=== PATIENT | female | born 1955 | race Caucasian/White ===

== ENCOUNTER → 2019-09-08 10:05 | Outpatient (CLI) | payer OTHER, SELFPAY ==
[2019-09-08 12:44] LABS: Absolute Lymphocyte Count 1.65 X10^3/uL (0.83-4.51); Absolute Neutrophil Count 1.5 X10^3/uL (2.0-7.7); Basophil# 0.04 X10^3/uL; Basophil% 1.1 % (0-1); Eosinophils% 2.7 % (0-5); Hematocrit 44.5 % (37-47); Hemoglobin 14.8 g/dL (12.0-15.0); Lymphocyte # 1.65 X10^3/ul (4.0); Mean Corp Hgb Conc 33.3 g/dL (32-36); Mean Corpuscular Volume 93.1 fL (81-99); Mean Platelet Vol. 10.2 fl (6.2-12.0); Monocyte# 0.36 X10^3/uL; Monocyte% 9.8 % (0-10); NRBC Flagged by Analyzer 0 % (0-5); Neutrophil # 1.52 X10^3/uL (2.7-7.7); Neutrophil % 41.4 % (47-70); Platelet Count 263 K/mm3 (150-450); RBC Distribution Width CV 11.7 % (11.6-14.6); RBC Distribution Width SD 40.6 fl (35.1-43.9); Red Blood Count 4.78 M/mm3 (4.2-5.4); White Blood Count 3.7 K/mm3 (4.4-11.0)
[2019-09-08 12:54] LABS: ALB/GLOB Ratio 1.1 RATIO (0.9-2.4); AST(SGOT) 41 U/L (15-37); Alanine Aminotransfer ALT/SGPT 47 U/L (13-56); Alkaline Phosphatase 85 U/L (45-117); Anion Gap 8 (5-15); BUN 11 mg/dL (7-18); BUN/Creat Ratio 13.9 RATIO (10-20); Calcium,Total 9.1 mg/dL (8.5-10.1); Chloride 100 mmol/L (98-107); Cholesterol 277 mg/dL (200); Creatinine, Serum 0.79 mg/dL (0.55-1.02); EST Glomerular Filtration Rate 78 mL/min (>60); Est Glom Filt Rate - Afr Amer 94 mL/min (>60); Globulin 3.8 g/dL (2.2-4.2); Glucose 102 mg/dL (74-106); High Density Lipoprotein 111 mg/dL; Potassium 3.4 mmol/L (3.5-5.1); Protein, Total 7.8 g/dL (6.4-8.2); Sodium Level 139 mmol/L (136-145); Triglycerides 82 mg/dL; Very Low Density Lipoprotein 16 mg/dL (5-40)
== END ==
LOC: LAB.FUTURE 03-10 00:15 → BFHLAB 09-08 13:57
PROVIDERS: Family Provider Family Medicine; PCP Family Medicine; Visit Provider Family Medicine
DX: Z13.220 Encounter for screening for lipoid disorders (principal); Z13.1 Encounter for screening for diabetes mellitus; Z13.0 Encounter for screening for diseases of the blood and blood-forming organs and certain disorders involving the immune mechanism
CPT/HCPCS: 36415; 80053; 80061; 85025

== ENCOUNTER → 2020-09-15 10:27 | Outpatient (CLI) | payer OTHER, SELFPAY ==
[2020-09-15 12:26] LABS: Absolute Lymphocyte Count 1.18 X10^3/uL (0.83-4.51); Absolute Neutrophil Count 3.6 X10^3/uL (2.0-7.7); Basophil# 0.05 X10^3/uL; Basophil% 0.9 % (0-1); Eosinophil# 0.11 X10^3/uL; Hemoglobin 13.8 g/dL (12.0-15.0); Lymphocyte # 1.18 X10^3/ul (4.0); Lymphocyte % 21.9 % (19-41); Mean Corp Hgb Conc 32.9 g/dL (32-36); Mean Corpuscular Hgb 31.4 pg (27.0-32.0); Mean Corpuscular Volume 95.5 fL (81-99); Mean Platelet Vol. 10.3 fl (6.2-12.0); Monocyte# 0.45 X10^3/uL; Monocyte% 8.4 % (0-10); NRBC Flagged by Analyzer 0 % (0-5); Neutrophil # 3.56 X10^3/uL (2.7-7.7); Neutrophil % 66.2 % (47-70); Platelet Count 266 K/mm3 (150-450); RBC Distribution Width CV 12.5 % (11.6-14.6); RBC Distribution Width SD 44.1 fl (35.1-43.9); White Blood Count 5.4 K/mm3 (4.4-11.0)
[2020-09-15 13:29] LABS: AST(SGOT) 72 U/L (15-37); Alanine Aminotransfer ALT/SGPT 92 U/L (13-56); Albumin, Serum 4.2 g/dL (3.2-5.0); Alkaline Phosphatase 79 U/L (45-117); Anion Gap 12 (5-15); BUN 17 mg/dL (7-18); BUN/Creat Ratio 24.6 RATIO (10-20); Calcium,Total 9.5 mg/dL (8.5-10.1); Chloride 98 mmol/L (98-107); Cholesterol 300 mg/dL (200); Creatinine, Serum 0.69 mg/dL (0.55-1.02); EST Glomerular Filtration Rate 91 mL/min (>60); Est Glom Filt Rate - Afr Amer 110 mL/min (>60); Glucose 95 mg/dL (74-106); High Density Lipoprotein 156 mg/dL; Potassium 3.2 mmol/L (3.5-5.1); Protein, Total 8.2 g/dL (6.4-8.2); Sodium Level 139 mmol/L (136-145); Triglycerides 64 mg/dL; Very Low Density Lipoprotein 13 mg/dL (5-40)
== END ==
PROVIDERS: PCP Family Medicine; Visit Provider Family Medicine
DX: Z13.220 Encounter for screening for lipoid disorders (principal); Z13.1 Encounter for screening for diabetes mellitus; Z13.0 Encounter for screening for diseases of the blood and blood-forming organs and certain disorders involving the immune mechanism
CPT/HCPCS: 36415; 80053; 80061; 85025

== ENCOUNTER → 2021-06-28 10:12 | Outpatient (CLI) | payer OTHER, SELFPAY ==
--- NOTE | 2021-06-28 10:14 | RAD_ITS ---
STUDY: X-RAY - LEFT KNEE REASON FOR EXAM: Female, 66 years old. Pain. TECHNIQUE: 4 view(s) of the knee. COMPARISON: None. FINDINGS: No acute fracture, dislocation or osseous destruction. Mild medial compartment joint space time. Lateral compartment preserved. Mild patellofemoral joint space narrowing. Small volume joint effusion. RAD/Knee 4 or More Views IMPRESSION: Left knee intact with mild osteoarthritis Small volume joint effusion Electronically Signed: Carrington Hernandez DO at 10:38 EDT Tel , Service support ,
== END ==
PROVIDERS: PCP Family Medicine; Referring Provider Family Medicine; Visit Provider Family Medicine
DX: M25.562 Pain in left knee (principal)
CPT/HCPCS: 73564

== ENCOUNTER → 2022-12-07 | Outpatient (CLI) | payer MEDICARE, SELFPAY ==
[2022-12-07 15:39] LABS: Absolute Lymphocyte Count 1.38 X10^3/uL (0.83-4.51); Absolute Neutrophil Count 3.2 X10^3/uL (2.0-7.7); Basophil# 0.04 X10^3/uL; Basophil% 0.8 % (0-1); Eosinophil# 0.11 X10^3/uL; Eosinophils% 2.1 % (0-5); Hematocrit 42.9 % (37-47); Hemoglobin 14.3 g/dL (12.0-15.0); Lymphocyte # 1.38 X10^3/ul (0.83-4.51); Lymphocyte % 26.6 % (19-41); Mean Corp Hgb Conc 33.3 g/dL (32-36); Mean Corpuscular Hgb 31.3 pg (27.0-32.0); Mean Corpuscular Volume 93.9 fL (81-99); Mean Platelet Vol. 10.8 fl (6.2-12.0); Monocyte# 0.41 X10^3/uL; Monocyte% 7.9 % (0-10); NRBC Flagged by Analyzer 0 % (0-5); Neutrophil # 3.23 X10^3/uL (2.7-7.7); Neutrophil % 62.4 % (47-70); Platelet Count 264 K/mm3 (150-450); RBC Distribution Width CV 11.8 % (11.6-14.6); RBC Distribution Width SD 40.3 fl (35.1-43.9); Red Blood Count 4.57 M/mm3 (4.2-5.4); White Blood Count 5.2 K/mm3 (4.4-11.0)
[2022-12-07 16:51] LABS: AST(SGOT) 49 U/L (15-37); Alanine Aminotransfer ALT/SGPT 74 U/L (13-56); Albumin, Serum 3.9 g/dL (3.2-5.0); Alkaline Phosphatase 85 U/L (45-117); Anion Gap 10 (5-15); BUN 14 mg/dL (7-18); BUN/Creat Ratio 20.1 RATIO (10-20); Calcium,Total 9.4 mg/dL (8.5-10.1); Chloride 98 mmol/L (98-107); Cholesterol 315 mg/dL (200); EST Glomerular Filtration Rate 90 mL/min (>60); Est Glom Filt Rate - Afr Amer 108 mL/min (>60); Glucose 99 mg/dL (74-106); High Density Lipoprotein 118 mg/dL; Iron 181 ug/dL (50-170); Potassium 3.3 mmol/L (3.5-5.1); Protein, Total 7.9 g/dL (6.4-8.2); Sodium Level 138 mmol/L (136-145); Thyroid Stim Hormone (TSH) 0.47 uIU/mL (0.358-3.74); Triglycerides 78 mg/dL; Very Low Density Lipoprotein 16 mg/dL (5-40)
[2022-12-07 18:01] LABS: Vitamin D,25 Hydroxy 36.6 ng/mL
== END | disposition home or self-care (01) ==
PROVIDERS: PCP Family Medicine; Visit Provider Family Medicine
DX: I10 Essential (primary) hypertension (principal); E87.6 Hypokalemia; E55.9 Vitamin D deficiency, unspecified; R53.83 Other fatigue; Z51.81 Encounter for therapeutic drug level monitoring
CPT/HCPCS: 36415; 80053; 80061; 82306; 83540; 84443; 85025

== ENCOUNTER → 2023-06-22 | Outpatient (CLI) | payer MEDICARE, SELFPAY ==
--- NOTE | 2023-06-22 12:57 | RAD_ITS ---
HISTORY: KNEE PAIN. TECHNIQUE: XR Knee Complete 4 Views or More. COMPARISON: None. FINDINGS: BONES : No acute fracture identified. Mineralization unremarkable. Small degenerative osteophytes noted. JOINTS: No dislocation. Joint spaces maintained. Mild joint effusion. RAD/Knee 4 or More Views IMPRESSION: No acute fracture or dislocation identified . Mild degenerative change and mild joint effusion of the right knee. Electronically Signed: Nettie Wilcox MD at 9:09 EDT ,
== END | disposition home or self-care (01) ==
LOC: MTRAD 12:55
PROVIDERS: PCP Family Medicine; Referring Provider Nurse Practitioner Family; Visit Provider Nurse Practitioner Family
DX: M25.561 Pain in right knee (principal)
CPT/HCPCS: 73564

== ENCOUNTER → 2023-12-19 | Outpatient (CLI) | payer MEDICARE, SELFPAY ==
[2023-12-19 15:32] LABS: Absolute Lymphocyte Count 1.74 X10^3/uL (0.83-4.51); Absolute Neutrophil Count 2.2 X10^3/uL (2.0-7.7); Basophil# 0.05 X10^3/uL; Basophil% 1.1 % (0-1); Eosinophil# 0.11 X10^3/uL; Eosinophils% 2.4 % (0-5); Hematocrit 44.4 % (37-47); Hemoglobin 14.4 g/dL (12.0-15.0); Lymphocyte # 1.74 X10^3/ul (0.83-4.51); Lymphocyte % 37.4 % (19-41); Mean Corp Hgb Conc 32.4 g/dL (32-36); Mean Corpuscular Volume 95.5 fL (81-99); Mean Platelet Vol. 10.9 fl (6.2-12.0); Monocyte# 0.52 X10^3/uL; Monocyte% 11.2 % (0-10); NRBC Flagged by Analyzer 0 % (0-5); Neutrophil # 2.22 X10^3/uL (2.7-7.7); Neutrophil % 47.7 % (47-70); Platelet Count 237 K/mm3 (150-450); RBC Distribution Width CV 12.2 % (11.6-14.6); RBC Distribution Width SD 42.5 fl (35.1-43.9); Red Blood Count 4.65 M/mm3 (4.2-5.4); White Blood Count 4.7 K/mm3 (4.4-11.0)
[2023-12-19 15:57] LABS: ALB/GLOB Ratio 1.1 RATIO (0.9-2.4); AST(SGOT) 65 U/L (15-37); Alanine Aminotransfer ALT/SGPT 98 U/L (13-56); Alkaline Phosphatase 88 U/L (45-117); Anion Gap 5 (5-15); BUN 14 mg/dL (7-18); BUN/Creat Ratio 21.7 RATIO (10-20); Calcium,Total 9.6 mg/dL (8.5-10.1); Chloride 101 mmol/L (98-107); Cholesterol 308 mg/dL (200); Creatinine, Serum 0.64 mg/dL (0.55-1.02); EST Glomerular Filtration Rate 98 mL/min (>60); Est Glom Filt Rate - Afr Amer 118 mL/min (>60); Globulin 3.7 g/dL (2.2-4.2); Glucose 100 mg/dL (74-106); High Density Lipoprotein 103 mg/dL; Iron 244 ug/dL (50-170); Potassium 3.3 mmol/L (3.5-5.1); Protein, Total 7.7 g/dL (6.4-8.2); Sodium Level 136 mmol/L (136-145); Thyroid Stim Hormone (TSH) 1.16 uIU/mL (0.358-3.74); Triglycerides 103 mg/dL; Very Low Density Lipoprotein 21 mg/dL (5-40)
[2023-12-19 16:02] LABS: Vitamin D,25 Hydroxy 50.8 ng/mL
== END | disposition home or self-care (01) ==
LOC: BFHLAB 11:23
PROVIDERS: PCP Family Medicine; Visit Provider Family Medicine
DX: I10 Essential (primary) hypertension (principal); E55.9 Vitamin D deficiency, unspecified; E87.6 Hypokalemia; R53.83 Other fatigue; Z51.81 Encounter for therapeutic drug level monitoring
CPT/HCPCS: 36415; 80053; 80061; 82306; 83540; 84443; 85025

== ENCOUNTER → 2024-04-11 | Outpatient (CLI) | payer MEDICARE, SELFPAY ==
--- NOTE | 2024-04-11 | IMM_PTH ---
PATIENT: ARIAS PANTOJA LOC: [facility] U#:[id number] AGE/SX: 69/F ROOM: RE04/11/[address]: Dr. Anjel Neil MD : 1955 BED: DIS: 04/11/2024 SPEC #: [id number] RECD: 04/16/24 11:30 STATUS: JAMAL REQ #: [id number] MARTITA: 04/11/24 00:[address]: Anjel Neil DEPT: IMMUNOHISTOCHEMISTRY RECD BY: Raymond Hardin ENTERED: 04/16/24 11:30 SP TYPE: IMMUNO OTHR DR: Dr. Lilibeth Rodgers, DO Tissues: Palate, NOS Procedures: p16 (initial) KI-67 (add) PHYSICIAN & INSTITUTION [place] [address] SPECIMEN INFORMATION: Tissue Source: Soft palate lesion Clinical Info: Pigmented soft palate lesion Specimen Number: [id number] CPT code: 77096,50137 METHODOLOGY: Deparaffinized sections of prefer/formalin-fixed tissue or PAP/DQ stained slides are incubated with monoclonal/polyclonal antibodies/oligonucleotide probes. Localization is made via biotin free immunoperoxidase method. Appropriate controls are performed and reacted as expected. Results on target cell population are indicated in the following table: RESULTS: ANTIBODY / CLONE RESULT P16 (E6H4) negative Ki-67 (30-9) negative These tests were developed and their performance characteristics determined by [facility]. They may not have been cleared or approved by the U.S. Food and Drug Administration. The FDA has determined that such clearance or approval is not necessary. The above immunohistochemical/dualISH markers are ordered and reviewed by the Pathologist. INTERPRETATION: Soft palate lesion, excision: No evidence of HPV change. ABDULKADIR/ 04/17/2024
--- NOTE | 2024-04-11 16:05 | LES_PTH ---
PATIENT: ARIAS PANTOJA LOC: [facility] U#:[id number] AGE/SX: 69/F ROOM: RE04/11/[address]: Dr. Anjel Neil MD : 1955 BED: DIS: 04/11/2024 SPEC #: [id number] RECD: 04/15/24 09:43 STATUS: JAMAL RESiva #: [id number] MARTITA: 04/11/24 16:[address]: Anjel Neil DEPT: SURGICAL PATHOLOGY RECD BY: Ernestina Stinson ENTERED: 04/15/24 09:43 SP TYPE: Lesion OTHR DR: Dr. Lilibeth Rodgers, DO Tissues: Palate, NOS Procedures: Surgery Specimen Level IV HEADER OPERATION: Permanent pathology PRE-OP DIAGNOSIS: Pigmented soft palate lesion TISSUE SUBMITTED: Soft palate lesion MICROSCOPIC DIAGNOSIS Soft palate lesion, biopsy: Benign mucosal polyp. See comment. ABDULKADIR/ 04/16/2024 COMMENT Immunohistochemistry ([id number]) supports the above diagnosis. MICROSCOPIC DESCRIPTION Slides are reviewed. GROSS DESCRIPTION Received in fixative is one container labeled with the patient's name and designated Soft palate lesion biopsy. The specimen consists of one irregular fragment of light swartz soft tissue that measures 0.2 x 0.2 x 0.1 cm. The specimen is totally submitted in one cassette. AM/mr 04/15/2024 TC:5 CPT:83766
== END | disposition home or self-care (01) ==
LOC: LABSPEC 16:40
PROVIDERS: PCP Family Medicine; Referring Provider Otolaryngology; Visit Provider Otolaryngology
DX: K13.70 Unspecified lesions of oral mucosa (principal)
CPT/HCPCS: 88305; 88341; 88342

== ENCOUNTER → 2024-11-24 | Outpatient (CLI) | payer MEDICARE, SELFPAY ==
--- NOTE | 2024-11-24 13:05 | RAD_ITS ---
HISTORY: right middle finger cellulitis. TECHNIQUE: XR Fingers Min 2 Views. COMPARISON: None. FINDINGS: BONES : No acute fracture identified. Mild erosion of the base of the distal phalanx. JOINTS: No dislocation. Mild degenerative change with interphalangeal joint space narrowing and small osteophytes. SOFT TISSUES: Severe soft tissue swelling surrounding the distal interphalangeal joint. RAD/Finger(s) Min 2 Views IMPRESSION: Severe soft tissue swelling of the right third distal interphalangeal joint with suspicion for osteomyelitis at the base of the distal phalanx. Early septic arthritis not excluded. Electronically Signed: Nettie Wilcox MD at 13:58 EST ,
== END | disposition home or self-care (01) ==
LOC: MTRAD 13:05
PROVIDERS: PCP Family Medicine; Referring Provider Physician Assistant; Visit Provider Physician Assistant
DX: L03.011 Cellulitis of right finger (principal)
CPT/HCPCS: 73140

== ENCOUNTER 2024-11-25 11:47 | Inpatient (IN) | payer MEDICARE, SELFPAY ==
[2024-11-25] VITALS (9 sets, daily range): BP systolic 139–158; BP diastolic 73–94; PULSE 79–100; RESP 16–23; TEMP 36.3–36.9; O2SAT 96–100; BMI 23.3; BMI 24.5
--- NOTE | 2024-11-25 12:38 | EX.ED.UPPERE ---
HPI History of Present Illness Chief Complaint: Upper Extremity Injury Narrative Narrative: Chief complaint and HPI: Suspected osteomyelitis of the right third distal interphalangeal joint. 69-year-old female presents for evaluation of suspected osteomyelitis of the right third distal interphalangeal joint. Patient was seen and evaluated by Dr. Spain today and sent in for further workup and admission. Plan is for local incision and drainage by Dr. Spain later today and likely MRI. Patient states that she was recently injured by a home cactus plant in that finger. She cannot tell me when this happened. She states over the past several days she has been having increase redness and swelling in the right third finger. She states that she did pop the area a couple days ago in which she got out purulent material. She states since then she has been having increased swelling, redness, pain and purulence in the finger. She was seen by an urgent care yesterday who obtained x-ray. She had follow-up with Dr. Spain today. She denies any fever, chills, nausea, vomiting. Review of systems: See HPI Medications: As listed on the chart Allergies: As listed on the chart PFSH: Per chart Vital signs: As listed on the chart. Reviewed. Physical exam: Gen: A&O x3, NAD Head: Normocephalic, atraumatic Eyes: No sclera icterus, conjunctiva clear ENT: Moist mucous membranes CV: RRR, no murmurs Resp: Lungs CTA BL, no w/r/c Musc: There is significant swelling and erythema to the right third finger at the DIP joint. Area is tender to palpation. There appears to be a small abscess/purulent material that is contained within the swelling. No active drainage. Full range of motion of the finger. Radial/ulnar pulses plus 2 out of 4. Skin: Warm, dry Neuro: Alert, oriented, grossly intact, sensation intact Psych: Cooperative, appropriate mood and affect [facility] Medical History ETOH abuse Hypertension Cellulitis of right middle finger Home Medications ?Medication ?Instructions ?Recorded ?Last Taken ?Type doxycycline monohydrate 100 mg 100 mg PO BID #20 caps 11/24/24 11/25/24 Rx capsule hydrochlorothiazide 25 mg tablet 25 mg PO QDAY 11/24/24 11/25/24 History Allergy/AdvReac Type Severity Reaction Status Date / Time Penicillins Allergy Severe Rash Verified 11/25/24 10:06 Family History Mother CVA (cerebral vascular accident) Dementia Father Hypertension Aunt Alcohol abuse Uncle Alcohol abuse Surgical History Previous section History of thumb surgery Social History household members: spouse Smoking Status: Never smoker alcohol intake: current alcohol intake frequency: 3 or more drinks per day Alcohol type: hard liquor details: Prior 1-2 drinks/night->since 09/2024 increased to 4-6/night. substance use type: does not use what type of physical activity do you participate in: walking and bicycling do you feel safe at home: Yes EXAM Physical Exam Const Vital Signs: 11/25/24 11:48 11/25/24 11:49 Temperature 97.4 F L 97.4 F L Temperature Source Temporal Oral Pulse Rate 100 100 Respiratory Rate 20 H 18 Blood Pressure 157/92 H 157/92 H Blood Pressure Mean 113 113 Pulse Ox 98 Oxygen Delivery Method Room Air Room Air MDM MDM MDM Narrative Medical decision making narrative: 69-year-old female presents for evaluation of suspected osteomyelitis of the right third distal interphalangeal joint. On chart review, patient has x-ray of the right middle finger. Shows severe soft tissue swelling of the right third distal interphalangeal joint which is consistent with her physical exam. Suspicion for osteomyelitis at the base of the distal phalanx. Early septic arthritis not excluded. Differential diagnosis includes but is not limited to osteomyelitis, cellulitis, abscess. Patient has rash to penicillins therefore cefepime and vancomycin ordered empirically. Laboratory workup ordered including blood cultures. CBC without leukocytosis or anemia. BMP shows mild dehydration without TOÑO. Lactic acid unremarkable. CRP elevated at 25. ESR unremarkable. Patient will warrant admission for MRI as well as IV antibiotics and I&D by Dr. Spain. Patient was updated of all results and confirmed understanding the plan. Dr. Matute accepted admission. Impression: 1. Suspected osteomyelitis of the right third distal interphalangeal joint 2. Dehydration Discharge Plan Disposition Disposition: Acute Care Hospital [facility] Discharge Date/Time: 11/25/24 14:36
[2024-11-25] MEDS: Cefepime HCl 2 GM in 0.9% Normal Saline (100mL MB+) 100 ML IV ×2 (12:49→22:05)
[2024-11-25 13:09] LABS: Absolute Lymphocyte Count 0.87 X10^3/uL (0.83-4.51); Absolute Neutrophil Count 3.8 X10^3/uL (2.0-7.7); Basophil# 0.02 X10^3/uL; Basophil% 0.4 % (0-1); Eosinophil# 0.04 X10^3/uL; Eosinophils% 0.8 % (0-5); Hematocrit 40.8 % (37-47); Hemoglobin 14.2 g/dL (12.0-15.0); Lymphocyte # 0.87 X10^3/ul (0.83-4.51); Lymphocyte % 16.6 % (19-41); Mean Corp Hgb Conc 34.8 g/dL (32-36); Mean Corpuscular Hgb 31.6 pg (27.0-32.0); Mean Corpuscular Volume 90.7 fL (81-99); Mean Platelet Vol. 9.6 fl (6.2-12.0); Monocyte# 0.51 X10^3/uL; Monocyte% 9.8 % (0-10); NRBC Flagged by Analyzer 0 % (0-5); Neutrophil # 3.77 X10^3/uL (2.7-7.7); Platelet Count 282 K/mm3 (150-450); RBC Distribution Width CV 12.5 % (11.6-14.6); RBC Distribution Width SD 40.7 fl (35.1-43.9); White Blood Count 5.2 K/mm3 (4.4-11.0)
[2024-11-25 13:11] LABS: Anion Gap 8 (5-15); BUN 10 mg/dL (7-18); BUN/Creat Ratio 16.6 RATIO (10-20); Calcium,Total 9.7 mg/dL (8.5-10.1); Chloride 94 mmol/L (98-107); EST Glomerular Filtration Rate 105 mL/min (>60); Est Glom Filt Rate - Afr Amer 127 mL/min (>60); Estimated Creatinine Clearance 58.93 ml/min; Glucose 103 mg/dL (74-106); Sodium Level 132 mmol/L (136-145)
[2024-11-25 13:15] LABS: Erythrocyte Sedimentation Rate 16 mm/hr (0-30)
[2024-11-25 13:25] LABS: Lactic Acid 1.1 mmol/L (0.4-1.9)
[2024-11-25] MEDS: Vancomycin HCl 1,500 MG in 0.9% Normal Saline (500mL Bag) 500 ML 250 MG IV (13:41)
--- NOTE | 2024-11-25 13:50 | PCM.HP.STD ---
HPI - General General Date of Admission: 11/25/24 Date of Service: 11/25/24 Chief Complaint: R middle finger swelling/pain/redness. HPI Narrative The patient is an 69 y/o F w/ PMHx: EtOH abuse (normally max 2 drinks nightly recently until 09/2024 with then increase to at least 4-6 heavy liquor drinks each with at least 2 ounces of liquor) noting she has recently been attempting to decrease her amount with potentially mild tremors associated, HTN who presents to the [facility] ED on 11/25/2024 with history of 1 to 1.5-week duration of right long finger swelling and discomfort at the distal interphalangeal joint with evidence of fluid collection noting that she had initially gotten it stuck at that location while she had been watering a cactus with a cactus thorn when this initially started with a progressively worsening with urgent care evaluation the day prior placed on doxycycline at that time with radiology follow-up imaging discussion with provider who recommended follow-up with hand surgeon given concern for cortical erosion at the distal phalanx consistent with an infection with mild to moderate pain prompting evaluation on day of presentation with Dr. Markie Spain who recommended following evaluation ED evaluation for admission/abx therapy and further imaging. She notes her finger aches more than is painful and it is minimal 11/28. She notes potentially feeling low grade temperatures recently and some mild nausea following doxycycline intake x 1 otherwise no other marked symptoms. Workup in the ED included T97.4, heart rate 100, BP 157/92, respiratory rate 20, 98% room air with most recent repeat vitals T98.2 Orally, heart rate 81, BP 149/89, respiratory rate 23, 97% room air, CBC with WBC 5.2, hemoglobin 14.2, platelet 282 without marked shift, ESR 16, CRP 25, lactic acid 1.1, BMP with sodium 132, potassium 4.0, chloride 94, BUN/creatinine 10/0.60, GFR 105, blood culture x 2 pending per ED. In the ED patient ministered cefepime 2 g IV x 1 and vancomycin 1500 mg IV x 1. [facility] Medical History ETOH abuse Hypertension Cellulitis of right middle finger Home Medications ?Medication ?Instructions ?Recorded ?Last Taken ?Type doxycycline monohydrate 100 mg 100 mg PO BID #20 caps 11/24/24 11/25/24 Rx capsule hydrochlorothiazide 25 mg tablet 25 mg PO QDAY 11/24/24 11/25/24 History Allergy/AdvReac Type Severity Reaction Status Date / Time Penicillins Allergy Severe Rash Verified 11/25/24 10:06 Family History Mother CVA (cerebral vascular accident) Dementia Father Hypertension Aunt Alcohol abuse Uncle Alcohol abuse Surgical History Previous section History of thumb surgery Social History household members: spouse Smoking Status: Never smoker alcohol intake: current alcohol intake frequency: 3 or more drinks per day Alcohol type: hard liquor details: Prior 1-2 drinks/night->since 09/2024 increased to 4-6/night. substance use type: does not use what type of physical activity do you participate in: walking and bicycling do you feel safe at home: Yes ROS ROS Narrative Admission Review of Systems: CONSTITUTIONAL: No weight loss, chills, + possible low grade fever, weakness or fatigue. HEENT: Eyes: No visual loss, blurred vision, double vision or yellow sclerae. Ears, Nose, Throat: No hearing loss, sneezing, congestion, runny nose or sore throat. SKIN: No rash or itching, lesions, wounds except + R middle distal finger erythema, edema, appearance of abscess developing. CARDIOVASCULAR: No chest pain, chest pressure or chest discomfort, palpitations, edema, orthopnea, syncopal events. RESPIRATORY: No shortness of breath, cough or sputum, wheezing, hemoptysis. GASTROINTESTINAL: No anorexia, nausea, vomiting or diarrhea, abdominal pain, melena, BRBPR. GENITOURINARY: No dysuria, frequency, urgency or retention. NEUROLOGICAL: + Mild tremors. No headache, dizziness, syncope, paralysis, ataxia, numbness or tingling in the extremities, focal weakness, change in bowel or bladder control, seizure. MUSCULOSKELETAL: + muscle, back pain, joint pain or stiffness. HEMATOLOGIC: No anemia, bleeding or bruising. LYMPHATICS: No enlarged nodes. No history of splenectomy. PSYCHIATRIC: No history of depression or anxiety. ENDOCRINOLOGIC: No reports of sweating, cold or heat intolerance. No polyuria or polydipsia. ALLERGIES: + Hx rash with PCN. Vital Signs Vital Signs Vital Signs: 11/25/24 11:48 11/25/24 11:49 11/25/24 12:35 Temperature 97.4 F L 97.4 F L 97.4 F L Temperature Source Temporal Oral Pulse Rate 100 100 100 Respiratory Rate 20 H 18 18 Blood Pressure 157/92 H 157/92 H 157/92 H Blood Pressure Mean 113 113 113 Pulse Ox 98 98 Oxygen Delivery Method Room Air Room Air 11/25/24 12:49 11/25/24 13:00 Temperature 98.2 F 98.2 F Temperature Source Oral Oral Pulse Rate 79 81 Respiratory Rate 22 H 23 H Blood Pressure 158/94 H 149/89 H Blood Pressure Mean 115 109 Pulse Ox 97 97 Oxygen Delivery Method Room Air Room Air Weight Weight: 135 lb 14.4 oz Body Mass Index (BMI) 23.3 Physical Exam Narrative Physical Examination: General: Awake, alert, oriented x 3 and cooperative, seated upright in bed in no apparent distress, denies any current pain to the hand. Skin: Normal color, normal turgor, no icterus, no cyanosis except R distal middle finger primarily edema, erythema, fluid appearance in the radial and ulnar sides on the dorsal region of the DIP joint. HEENT: AT/NC, EOMI, PERRLA, MMM, no carotid bruits or JVD noted. Lungs: CTA bilaterally, moderate effort, mild decrease BL bases, no rales, ronchi or wheezing. Heart: Regular rate and rhythm; no gallop, rub audible. Abdomen: Soft, NTTP, ND, normal BS, no appreciatedHSM. Extremities: No cyanosis, clubbing, see skin. Neurological: Patient awake, alert, oriented as noted, cognitive function intact; pupils equally reactive to light and accommodation, cranial nerves grossly normal, moving all 4 extremities despite event R middle finger findings as noted, no focal deficits, strength mildly globally decreased. Psychiatric: Affect appears normal, no acute evidence of depressive or anxiety feelings. Results Lab / Micro Data 11/25/24 12:45 11/25/24 12:45 Labs: Laboratory Results - last 24 hr 11/25/24 12:45: WBC 5.2, RBC 4.50, Hgb 14.2, Hct 40.8, MCV 90.7, MCH 31.6, MCHC 34.8, RDW Std Deviation 40.7, RDW Coeff of Garett 12.5, Plt Count 282, MPV 9.6, Immature Gran % (Auto) 0.400, Neut % (Auto) 72.0 H, Lymph % (Auto) 16.6 L, Leslie % (Auto) 9.8, Eos % (Auto) 0.8, Baso % (Auto) 0.4, Absolute Neuts (auto) 3.8, Absolute Lymphs (auto) 0.87, Nucleated RBC % 0, ESR 16, Sodium 132 L, Potassium 3.0 L, Chloride 94 L, Carbon Dioxide 30.0, Anion Gap 8, BUN 10, Creatinine 0.60, Estim Creat Clear Calc 58.93, Est GFR (MDRD) Af Amer 127, Est GFR (MDRD) Non-Af 105, BUN/Creatinine Ratio 16.6, Glucose 103, Lactic Acid 1.1, Calcium 9.7, C-React Prot Ext Range 25.00 H Assessment & Plan Assessment/Plan (1) Cellulitis of right middle finger: (2) Infection of distal interphalangeal (DIP) joint of finger: PLAN: Plan The patient is an 69 y/o F w/ PMHx: EtOH abuse (normally max 2 drinks nightly recently until 09/2024 with then increase to at least 4-6 heavy liquor drinks each with at least 2 ounces of liquor) noting she has recently been attempting to decrease her amount with potentially mild tremors associated, HTN who presents to the [facility] ED on 11/25/2024 with history of 1 to 1.5-week duration of right long finger swelling and discomfort at the distal interphalangeal joint with evidence of fluid collection noting that she had initially gotten it stuck at that location while she had been watering a cactus. #1. R middle finger cellulitis, distal interphalangeal joint infection: Will admit to [facility], maintain on IV vancomycin and cefepime given allergy history and also concern for joint infection, per discussion with plastic surgery noted planned bedside possible debridement versus debridement in OR under local only, would plan to obtain Wound Cx, will obtain Wound MRSA PCR, plan repeat CBC in AM, continue affected extremity elevation above heart when seated and in bed, monitor erythema outline with VS checks, wound RN consultation, dressing changes per plastic surgery discretion, MRI of the right hand with and without contrast also requested, as needed antiemetic and pain regimen. #2. EtOH Abuse: Patient notes routine consumption of currently up to 4-6 drinks of liquor per day. Per discussion with patient she does plan to continue alcohol intake but wants to decrease this again and understands the appropriate intake level and was considered alcohol abuse. Will maintain on CIWA protocol, MVI, thiamine and folic acid. Case management consulted. Will have as needed agents for symptom control per protocol order set. #3. Hyponatremia, mild, potentially secondary to hydrochlorothiazide, alcohol abuse and potential hypovolemic component given acute infection #1: Admission sodium 132, chloride 94, will judiciously hydrate and repeat CMP in a.m. #4. Hypokalemia: Admission K+ 3.0, magnesium level requested, supplementation given, repeat level in AM. #5. Hypertension: Continue home regimen including hydrochlorothiazide with hold parameters as needed, PRN hydralazine. #6. DVT prophylaxis: Lovenox. Charges/Coding Visit Charges Inpatient E&M: 78910 Init Hosp L3
--- NOTE | 2024-11-25 14:10 | HP.PCM.SX_ITS ---
HPI - General General Date of Admission: 11/25/24 Chief Complaint: R middle finger swelling/pain/redness. HPI Narrative Maureen Suarez is a delightful 69-year-old female with past medical history of hypertension who presents today for 1-1/2 weeks duration of right long finger swelling at the distal interphalangeal joint with new formation of fluid collections. She reports that she got stuck in this location while watering a cactus (cactus thorn) 1.5 weeks ago around the same time that the swelling started. Her friend told her to go to the urgent care yesterday. She was placed on doxycycline and discharged. The radiologist called the provider and recommended follow-up with hand surgery as there was concern for cortical erosions in the distal phalanx consistent with an infection. Patient denies any severe pain but reports that she has a high pain tolerance overall. She initially thought it was gout as she had been eating a lot of meat and drinking wine over the holidays, but she has never had a diagnosed gout exacerbation in the past. Patient is right-hand dominant does not smoke. She is . 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 She reports at least 2 alcoholic beverages per day, and reported to me that it would be a problem for her to be admitted to the hospital without this being taken into account. Here in the ED for evaluation Admitting to medicine and taking to the OR [facility] Medical History (Updated 11/25/24 @ 11:58 by La Menezes) Hypertension Cellulitis of right middle finger Home Medications ?Medication ?Instructions ?Recorded ?Last Taken ?Type doxycycline monohydrate 100 mg 100 mg PO BID #20 caps 11/24/24 11/25/24 Rx capsule hydrochlorothiazide 25 mg tablet 25 mg PO QDAY 11/24/24 11/25/24 History Allergy/AdvReac Type Severity Reaction Status Date / Time Penicillins Allergy Severe Rash Verified 11/25/24 10:06 Surgical History (Updated 11/25/24 @ 11:57 by La Menezes) Previous section History of thumb surgery Social History household members: spouse Smoking Status: Never smoker alcohol intake: current alcohol intake frequency: 0-2 drinks per day substance use type: does not use what type of physical activity do you participate in: walking and bicycling do you feel safe at home: Yes Vital Signs Vital Signs Vital Signs: 11/25/24 11:48 11/25/24 11:49 11/25/24 12:35 Temperature 97.4 F L 97.4 F L 97.4 F L Temperature Source Temporal Oral Pulse Rate 100 100 100 Respiratory Rate 20 H 18 18 Blood Pressure 157/92 H 157/92 H 157/92 H Blood Pressure Mean 113 113 113 Pulse Ox 98 98 Oxygen Delivery Method Room Air Room Air 11/25/24 12:49 11/25/24 13:00 Temperature 98.2 F 98.2 F Temperature Source Oral Oral Pulse Rate 79 81 Respiratory Rate 22 H 23 H Blood Pressure 158/94 H 149/89 H Blood Pressure Mean 115 109 Pulse Ox 97 97 Oxygen Delivery Method Room Air Room Air Weight Weight: 135 lb 14.4 oz Body Mass Index (BMI) 23.3 Physical Exam Narrative Right Upper Extremity Inspection: Pockets of fluid versus tophus (but favor fluid) radial and ulnar sides of the terminal slip on the dorsum of the DIP joint of the right long finger. No signs of ascending infection. No signs of flexor tenosynovitis. Palpation: No tenderness to palpation Motor: Able to bend and extend all MP, PIP, and DIP joints. Sensory: Intact to light touch on the radial and ulnar borders. Vascular: Finger tips are warm and well perfused with <2 second capillary refill. Results Lab / Micro Data 11/25/24 12:45 11/25/24 12:45 Labs: Laboratory Results - last 24 hr 11/25/24 12:45: WBC 5.2, RBC 4.50, Hgb 14.2, Hct 40.8, MCV 90.7, MCH 31.6, MCHC 34.8, RDW Std Deviation 40.7, RDW Coeff of Garett 12.5, Plt Count 282, MPV 9.6, Immature Gran % (Auto) 0.400, Neut % (Auto) 72.0 H, Lymph % (Auto) 16.6 L, Payette % (Auto) 9.8, Eos % (Auto) 0.8, Baso % (Auto) 0.4, Absolute Neuts (auto) 3.8, Absolute Lymphs (auto) 0.87, Nucleated RBC % 0, ESR 16, Sodium 132 L, Potassium 3.0 L, Chloride 94 L, Carbon Dioxide 30.0, Anion Gap 8, BUN 10, Creatinine 0.60, Estim Creat Clear Calc 58.93, Est GFR (MDRD) Af Amer 127, Est GFR (MDRD) Non-Af 105, BUN/Creatinine Ratio 16.6, Glucose 103, Lactic Acid 1.1, Calcium 9.7, C- React Prot Ext Range 25.00 H Assessment & Plan Assessment/Plan (1) Infection of distal interphalangeal (DIP) joint of finger: (2) Cellulitis of right middle finger: PLAN: Plan I talked the patient extensively about the risks of surgery, including bleeding, infection, damage to surrounding structures, surgical site dehiscence and wound formation, need for wound care, need for repeat operations, failure to obtain the desired result, DVT/PE, and the risks of anesthesia (albeit we are performing under local). The benefits and alternatives of this surgery were also discussed. All of their questions were answered, and they agreed to proceed with surgery. Plan for I&D in the OR of the right long finger DIP joint infection.
[2024-11-25 14:50] LABS: Magnesium 1.8 mg/dL (1.6-2.6); Phosphorus 3.1 mg/dL (2.5-4.9)
--- NOTE | 2024-11-25 16:30 | TISS_PTH ---
PATIENT: ARIAS PANTOJA LOC: MS3 U#:[id number] AGE/SX: 69/F ROOM: CO305 RE11/25/[address]: Dr. Markie Spain MD : 1955 BED: 1 DIS: 11/27/2024 SPEC #: [id number] RECD: 11/25/24 18:36 STATUS: JAMAL BARRON #: [id number] MARTITA: 11/25/24 16:[address]: Markie Spain DEPT: SURGICAL PATHOLOGY RECD BY: Edel Larson ENTERED: 11/26/24 12:40 SP TYPE: Tissue Bx JON DR: DO Dr. Sarah Barrientos MD Dr. Robert Leininger, MD Tissues: TISSUE SURGICALLY REMOVED Procedures: Surgery Specimen Level IV Imprint (control) HEADER OPERATION: Joint right long finger PRE-OP DIAGNOSIS: Infection of distal interphalangeal joint of finger, cellulitis of right middle finger TISSUE SUBMITTED: Right long finger joint MICROSCOPIC DIAGNOSIS Right long finger joint, biopsy: A fragment of dense fibroconnective tissue with granulation tissue reaction. See comment. BRIDGER 11/27/2024 COMMENT One touch imprint is prepared from the tissue and shows monosodium urate crystals (gout crystals). MICROSCOPIC DESCRIPTION Slides are reviewed. GROSS DESCRIPTION Received without fixative and post fixed in formalin is one container labeled with the patient's name and designated Right long finger joint. The specimen consists of two irregular fragments of swartz indurated tissue that in aggregate measure 0.5 x 0.5 x 0.1 cm. One touch imprint is prepared for crystal examination. The specimen is totally submitted in one cassette. BRIDGER 11/26/2024 TC:5 CPT:20681
[2024-11-25] MEDS: Bupiv/Epi 0.25% 30 ML Vial (18:06)
[2024-11-25] MEDS: Lidocaine 1% /Epi 1:100 (20ml) 20 ML Vial (18:06)
[2024-11-25 20:22] LABS: CRYSTALS, BODY FLUID See PATH REV
[2024-11-25 20:23] LABS: Body Fluid QC Type(s) BF2Q; Source- Body Fluid OTHER
--- NOTE | 2024-11-25 20:45 | PCM.RX.CS ---
Consult Antibiotic Management Pharmacy has been consulted to manage selected antibiotic: Vancomycin Type of Intervention Type of Consult: New start Suspected Infection Suspected Infection: Skin/Soft tissue Prior Doses of Antibiotics Prior Doses of Antibiotics Received/Current Regimen: received vanc 1500mg IV x1 in E.R. starting at 13:41 today Labs Labs: Sodium 132 mmol/L (136-145) L 11/25/24 12:45 Potassium 3.0 mmol/L (3.5-5.1) L 11/25/24 12:45 Chloride 94 mmol/L (98-107) L 11/25/24 12:45 Carbon Dioxide 30.0 mmol/L (21.0-32.0) 11/25/24 12:45 Anion Gap 8 (5-15) 11/25/24 12:45 BUN 10 mg/dL (7-18) 11/25/24 12:45 Creatinine 0.60 mg/dL (0.55-1.02) 11/25/24 12:45 Est GFR (MDRD) Af Amer 127 mL/min (>60) 11/25/24 12:45 Est GFR (MDRD) Non-Af 105 mL/min (>60) 11/25/24 12:45 BUN/Creatinine Ratio 16.6 RATIO (10-20) 11/25/24 12:45 Glucose 103 mg/dL (74-106) 11/25/24 12:45 Dosing Weight Weight used for dosin.2 kg Estimated Creatinine Clearance Estimated Creatinine Clearance: 59 ml/min Goal Trough Goal Trough: 15-20 mcg/mL Pharmacy Plan for Drug Dosing Pharmacy Plan for Drug Dosing: Starting 12 hours after the E.R. dose, continue with vanc 750mg IV q12h per [facility] dosing protocol. Will check a trough before the 4th overall dose. Pharmacy Service will continue to monitor and adjust dosing as required. Follow-Up Labs Follow-Up Labs: Trough: Vancomycin Date/Time Labs Ordered Labs to be done on [date and time ordered]: 11/27/24 01:30
[2024-11-25] MEDS: 0.9% Normal Saline (1000mL) 1,000 ML 100 ML IV (22:06)
[2024-11-25] MEDS: Potassium Chloride Oral Tablet 20 MEQ 40 MEQ PO (22:09)
[2024-11-26 02:23] VITALS: BP 132/87; PULSE 77; RESP 18; TEMP 36.6; O2SAT 99
[2024-11-26] MEDS: Vancomycin HCl 750 MG in 0.9% Normal Saline (250mL Bag) 250 ML 250 MG IV ×2 (02:28→14:17)
[2024-11-26 05:32] VITALS: BMI 24.7
--- NOTE | 2024-11-26 05:38 | OP.PCM_ITS ---
Operative Report (Standard) Operative Information Date of Procedure: 11/25/24 Pre-Operative Diagnosis: Right long finger septic distal interphalangeal (DIP) joint Post-Operative Diagnosis: Same Surgery/Procedure Performed: Incision and drainage of DIP joint, right long finger, CPT 49187 language assistant: No Type of Anesthesia: Local RN Documented Start/Stop Times: Operation Date: 11/25/24 16:30 Case Time Into Pre-Op 11/25/24 14:42 Into Room 11/25/24 17:58 Procedure Start 11/25/24 18:06 Procedure End 11/25/24 18:20 Out of Room 11/25/24 18:27 Into Phase II Recovery 11/25/24 18:32 Out of Phase II 11/25/24 19:51 Anesthesia End Procedure Start Time: 18:06 Procedure Stop Time: 18:20 Select all DRAINS/GRAFTS/IMPLANTS that apply: None (Packing only ) Estimated Blood Loss: Minimal Specimen collected: Yes Description of specimen(s) removed: Cultures and pathology specimen (check for gout/crystals) Description of surgery: Indications: Patient presented with signs concerning of right long finger DIP joint infection in the setting of recent deep puncture wound from a cactus 1.5 weeks ago. I discussed the risk benefits and alternatives to I&D, including damage to surrounding structures such as collateral ligaments and terminal slip, as well as the soft tissue (leading to need for wound care) ,. She elected to proceed Procedure details Patient was correctly identified in preoperative holding and taken back to the operating room where she was administered a local block with 8 cc of a 50-50 mixture of 1% lidocaine with epinephrine (1-200,000) and 0.25% Marcaine with epinephrine (1-200,000) . She was prepped and draped in sterile fashion and a timeout was performed. 2 dorsal lateral incisions were made over the area of fluctuance over the DIP joint. Cultures were taken. Dissection was carefully taken with tenotomy scissors and the space between the collateral ligament and the terminal slip on both sides of the joint where there was fluctuance and the joint was entered and washed out with copious amounts of normal saline via an Angiocath as well as some Irrisept. Some of the material (yellow milky material) was sent to pathology as well for examination to rule out crystals. Patient tolerated the procedure well. The wounds were packed with Kerlix and the finger was wrapped loosely with Robert and Coban. Postoperative plan: Begin Dial soap soaks on the floor. Broad-spectrum antibiotics and MRI. Admitted to medicine. Surgical Findings: Milky yellow fluid from the DIP joint Complications Complications: No Admit VTE Documentation VTE Present on Admission: No VTE Mechan Device Prophylaxis: SCD's
[2024-11-26 06:18] LABS: Absolute Neutrophil Count 2.4 X10^3/uL (2.0-7.7); Basophil# 0.02 X10^3/uL; Basophil% 0.4 % (0-1); Eosinophil# 0.11 X10^3/uL; Eosinophils% 2.4 % (0-5); Hemoglobin 11.8 g/dL (12.0-15.0); Lymphocyte % 30.4 % (19-41); Mean Corp Hgb Conc 33.7 g/dL (32-36); Mean Corpuscular Volume 91.9 fL (81-99); Mean Platelet Vol. 9.9 fl (6.2-12.0); Monocyte# 0.71 X10^3/uL; Monocyte% 15.4 % (0-10); NRBC Flagged by Analyzer 0 % (0-5); Neutrophil # 2.35 X10^3/uL (2.7-7.7); Neutrophil % 51.2 % (47-70); Platelet Count 238 K/mm3 (150-450); RBC Distribution Width CV 12.6 % (11.6-14.6); RBC Distribution Width SD 41.6 fl (35.1-43.9); Red Blood Count 3.81 M/mm3 (4.2-5.4); White Blood Count 4.6 K/mm3 (4.4-11.0)
[2024-11-26 06:44] LABS: ALB/GLOB Ratio 0.8 RATIO (0.9-2.4); AST(SGOT) 64 U/L (15-37); Alanine Aminotransfer ALT/SGPT 83 U/L (13-56); Alkaline Phosphatase 85 U/L (45-117); Anion Gap 5 (5-15); BUN 9 mg/dL (7-18); BUN/Creat Ratio 19.3 RATIO (10-20); Calcium,Total 9.2 mg/dL (8.5-10.1); Chloride 104 mmol/L (98-107); Creatinine, Serum 0.47 mg/dL (0.55-1.02); EST Glomerular Filtration Rate 142 mL/min (>60); Est Glom Filt Rate - Afr Amer 171 mL/min (>60); Estimated Creatinine Clearance 63.67 ml/min; Globulin 3.6 g/dL (2.2-4.2); Glucose 103 mg/dL (74-106); Potassium 3.2 mmol/L (3.5-5.1); Protein, Total 6.6 g/dL (6.4-8.2); Sodium Level 137 mmol/L (136-145)
--- NOTE | 2024-11-26 06:53 | PN.SURG_ITS ---
Subjective Subjective Pain controlled. Medicine admitted. Objective Data Objective Data Vital Signs: Vital Signs Temp Pulse Resp BP Pulse Ox O2 Del Method 97.8 F 77 18 132/87 H 99 Room Air 11/26/24 02:23 11/26/24 02:23 11/26/24 02:23 11/26/24 02:23 11/26/24 02:23 11/26/24 02:23 Oxygen Delivery Method Room Air Weight: 144 lb 13.499 oz Body Mass Index (BMI) 24.7 Intake & Output: Intake and Output for Last 24 Hours 11/24/24 11/25/24 11/26/24 23:59 23:59 23:59 Intake Total 730 / 730 865 / 865 Balance 730 / 730 865 / 865 Lab / Micro Data 11/26/24 05:26 11/26/24 05:26 Labs: Laboratory Results - last 24 hr 11/25/24 12:45: WBC 5.2, RBC 4.50, Hgb 14.2, Hct 40.8, MCV 90.7, MCH 31.6, MCHC 34.8, RDW Std Deviation 40.7, RDW Coeff of Garett 12.5, Plt Count 282, MPV 9.6, Immature Gran % (Auto) 0.400, Neut % (Auto) 72.0 H, Lymph % (Auto) 16.6 L, [place] % (Auto) 9.8, Eos % (Auto) 0.8, Baso % (Auto) 0.4, Absolute Neuts (auto) 3.8, Absolute Lymphs (auto) 0.87, Nucleated RBC % 0, ESR 16, Sodium 132 L, Potassium 3.0 L, Chloride 94 L, Carbon Dioxide 30.0, Anion Gap 8, BUN 10, Creatinine 0.60, Estim Creat Clear Calc 58.93, Est GFR (MDRD) Af Amer 127, Est GFR (MDRD) Non-Af 105, BUN/Creatinine Ratio 16.6, Glucose 103, Lactic Acid 1.1, Calcium 9.7, Phosphorus 3.1, Magnesium 1.8, C-React Prot Ext Range 25.00 H 11/25/24 : Fluid Crystals See PATH REV, Fluid Crystal Source OTHER, Fl Crystal Path Review Will follow 11/26/24 05:26: WBC 4.6, RBC 3.81 L, Hgb 11.8 L, Hct 35.0 L, MCV 91.9, MCH 31.0, MCHC 33.7, RDW Std Deviation 41.6, RDW Coeff of Garett 12.6, Plt Count 238, MPV 9.9, Immature Gran % (Auto) 0.200, Neut % (Auto) 51.2, Lymph % (Auto) 30.4, [place] % (Auto) 15.4 H, Eos % (Auto) 2.4, Baso % (Auto) 0.4, Absolute Neuts (auto) 2.4, Absolute Lymphs (auto) 1.40, Nucleated RBC % 0, Sodium 137, Potassium 3.2 L, Chloride 104, Carbon Dioxide 28.0, Anion Gap 5, BUN 9, Creatinine 0.47 L, Estim Creat Clear Calc 63.67, Est GFR (MDRD) Af Amer 171, Est GFR (MDRD) Non-Af 142, BUN/Creatinine Ratio 19.3, Glucose 103, Calcium 9.2, Total Bilirubin 0.70, AST 64 H, ALT 83 H, Alkaline Phosphatase 85, Total Protein 6.6, Albumin 3.0 L, Globulin 3.6, Albumin/Globulin Ratio 0.8 L Physical Exam Narrative RUE: Incisions over DIP joint are open (packing removed). No purulence. No pain on the flexor surface or any other signs of volar infection. Assessment & Plan Assessment/Plan (1) Infection of distal interphalangeal (DIP) joint of finger: PLAN: Agree with medicine admit for CIWA/alcohol protocol and for broad-spectrum antibiotics and ID consultation. F/u pathology and f/u cultures. PSU to continue to follow Continue elevation and continue three times per day dial soap soaks with packing (discussed with patient and nursing) Charges/Coding Procedures Integumentary [id number]: [id number] Global Visit
--- NOTE | 2024-11-26 07:03 | WOUNDNOTE ---
wound photo: right middle finger
--- NOTE | 2024-11-26 07:29 | PCM.PN.HOSP ---
Reason for Visit Reason for Visit: Diagnoses Cellulitis of right finger (11/25/24) Pyogenic arthritis, unspecified (11/25/24) Subjective Subjective Patient doing well with no pain, no new or acute complaints Objective Data Objective Data Vital Signs: Vital Signs Temp Pulse Resp BP Pulse Ox O2 Del Method 97.8 F 77 18 132/87 H 99 Room Air 11/26/24 02:23 11/26/24 02:23 11/26/24 02:23 11/26/24 02:23 11/26/24 02:23 11/26/24 02:23 Oxygen Delivery Method Room Air Weight: 65.7 kg Body Mass Index (BMI) 24.7 Intake & Output: Intake and Output for Last 24 Hours 11/24/24 11/25/24 11/26/24 23:59 23:59 23:59 Intake Total 730 / 730 865 / 865 Balance 730 / 730 865 / 865 Lab / Micro Data 11/26/24 05:26 11/26/24 05:26 Labs: Laboratory Results - last 24 hr 11/25/24 12:45: WBC 5.2, RBC 4.50, Hgb 14.2, Hct 40.8, MCV 90.7, MCH 31.6, MCHC 34.8, RDW Std Deviation 40.7, RDW Coeff of Garett 12.5, Plt Count 282, MPV 9.6, Immature Gran % (Auto) 0.400, Neut % (Auto) 72.0 H, Lymph % (Auto) 16.6 L, [place] % (Auto) 9.8, Eos % (Auto) 0.8, Baso % (Auto) 0.4, Absolute Neuts (auto) 3.8, Absolute Lymphs (auto) 0.87, Nucleated RBC % 0, ESR 16, Sodium 132 L, Potassium 3.0 L, Chloride 94 L, Carbon Dioxide 30.0, Anion Gap 8, BUN 10, Creatinine 0.60, Estim Creat Clear Calc 58.93, Est GFR (MDRD) Af Amer 127, Est GFR (MDRD) Non-Af 105, BUN/Creatinine Ratio 16.6, Glucose 103, Lactic Acid 1.1, Calcium 9.7, Phosphorus 3.1, Magnesium 1.8, C-React Prot Ext Range 25.00 H 11/25/24 : Fluid Crystals See PATH REV, Fluid Crystal Source OTHER, Fl Crystal Path Review Will follow 11/26/24 05:26: WBC 4.6, RBC 3.81 L, Hgb 11.8 L, Hct 35.0 L, MCV 91.9, MCH 31.0, MCHC 33.7, RDW Std Deviation 41.6, RDW Coeff of Garett 12.6, Plt Count 238, MPV 9.9, Immature Gran % (Auto) 0.200, Neut % (Auto) 51.2, Lymph % (Auto) 30.4, [place] % (Auto) 15.4 H, Eos % (Auto) 2.4, Baso % (Auto) 0.4, Absolute Neuts (auto) 2.4, Absolute Lymphs (auto) 1.40, Nucleated RBC % 0, Sodium 137, Potassium 3.2 L, Chloride 104, Carbon Dioxide 28.0, Anion Gap 5, BUN 9, Creatinine 0.47 L, Estim Creat Clear Calc 63.67, Est GFR (MDRD) Af Amer 171, Est GFR (MDRD) Non-Af 142, BUN/Creatinine Ratio 19.3, Glucose 103, Calcium 9.2, Total Bilirubin 0.70, AST 64 H, ALT 83 H, Alkaline Phosphatase 85, Total Protein 6.6, Albumin 3.0 L, Globulin 3.6, Albumin/Globulin Ratio 0.8 L Physical Exam Narrative General: Alert, oriented, no apparent distress HEENT: Atraumatic, normocephalic Eyes: Anicteric, normal conjunctiva, extraocular movements grossly intact Neck: Supple Respiratory: Clear to auscultation bilaterally, normal respiratory effort Cardiovascular: Regular rate and rhythm GI: Soft, nontender, nondistended Extremities: No edema Musculoskeletal: Moving all extremities Neuro: No overt focal neurological deficits Skin: Finger presently wrapped Psych: Cooperative Assessment & Plan Assessment/Plan (1) Cellulitis of right middle finger: PLAN: Plan # Right middle finger cellulitis -Present for 1 to 1-1/2 weeks after impaling it on a cactus thorn -Patient was evaluated by plastic surgery in the outpatient setting and recommended coming to the hospital for admission for IV antibiotics and I&D -Patient underwent I&D with Dr. Spain on of right finger -Continue broad-spectrum antibiotics while awaiting cultures -ID consulted -MRI with skin ulceration with surrounding cellulitis and mild reactive marrow edema in the middle and distal phalanges of the fingers #Hypertension -Continue hydrochlorothiazide # EtOH use -Usually 2 drinks a night but more recently at least 4-6 heavy liquor drinks with at least 2 ounces of liquor in each -Continue CIWA -Continue thiamine and folate #DVT ppx: Lovenox subcu Sarah Grayson MD Charges/Coding Visit Charges Inpatient E&M: 61123 Subs Hosp L1
[2024-11-26 07:57] VITALS: BP 132/84; PULSE 70; RESP 18; TEMP 36.6; O2SAT 97
[2024-11-26] MEDS: Folic Acid 1 MG Tablet PO (08:07)
[2024-11-26] MEDS: Thiamine Hydrochloride 100 MG Tablet PO (08:07)
[2024-11-26] MEDS: Multivitamins,Ther W-Minerals Tablet 1 TABLET PO (08:07)
[2024-11-26] MEDS: hydroCHLOROthiazide 25 MG Tablet PO (08:07)
[2024-11-26] MEDS: Enoxaparin 40 MG/0.4 ML Syringe SC (08:07)
--- NOTE | 2024-11-26 09:00 | MRI_ITS ---
STUDY: MRI RIGHT HAND, WITHOUT AND WITH IV CONTRAST REASON FOR EXAM: Female, 69 years old. Right middle finger DIP infection/cellulitis. TECHNIQUE: Standardized fat and water weighted pulse sequences were obtained in all 3 orthogonal planes. Following the intravenous administration of 12 mL Clariscan contrast, additional postcontrast imaging was obtained. COMPARISON: None. FINDINGS: FIRST DIGIT: Normal visualized first metacarpus. Normal metacarpophalangeal joint. Normal interphalangeal joint. Normal proximal, and distal phalanges. Normal flexor and extensor tendons. There is no soft tissue abnormality. SECOND DIGIT: Normal visualized second metacarpus. Normal metacarpophalangeal joint. Normal proximal and distal interphalangeal joints. Normal proximal, middle and distal phalanges. Normal flexor and extensor tendons. There is no soft tissue abnormality. THIRD DIGIT: Normal visualized third metacarpus. Normal metacarpophalangeal joint. Normal proximal interphalangeal joint. Normal proximal phalanx. There is skin ulceration along the ulnar/medial aspect of the third finger at the level of the DIP joint with severe surrounding cellulitis. There is no discrete fluid collection or drainable abscess. There is mild increased STIR marrow signal in the middle and distal phalanges of the third finger, with preservation of the normal T1 marrow signal, suggestive of mild reactive marrow edema. Normal flexor and extensor tendons. FOURTH DIGIT: Normal visualized fourth metacarpus. Normal metacarpophalangeal joint. Normal proximal and distal interphalangeal joints. Normal proximal, middle and distal phalanges. Normal flexor and extensor tendons. There is no soft tissue abnormality. FIFTH DIGIT: Normal visualized fifth metacarpus. Normal metacarpophalangeal joint. Normal proximal and distal interphalangeal joints. Normal proximal, middle and distal phalanges. Normal flexor and extensor tendons. There is no soft tissue abnormality. Normal visualized thenar and hypothenar muscles. Normal lumbricalis and interosseous muscles. There are no solid, cystic or lipomatous masses. There is no abnormal enhancing mass. MRI/Upper Ext No Joint W/WO Cont IMPRESSION: Skin ulceration along the ulnar/medial aspect of the third finger at the level of the DIP joint with severe surrounding cellulitis. Mild reactive marrow edema in the middle and distal phalanges of the third finger. Electronically Signed: Silas Mcclain MD at 12:27 EST ,
[2024-11-26] MEDS: Cefepime HCl 2 GM in 0.9% Normal Saline (100mL MB+) 100 ML IV ×2 (10:24→21:46)
[2024-11-26 13:00] VITALS: BP 166/98; PULSE 85; RESP 18; TEMP 36.6; O2SAT 98
--- NOTE | 2024-11-26 13:59 | PCM.CONS.GEN ---
Assessment & Plan Assessment/Plan (1) Infection of distal interphalangeal (DIP) joint of finger: PLAN: Taken to OR 11/25/[address] Spain for I&D. Surg cx and pcr pending. Bcx pending. On empiric vanc/cefepime. No fever, normal wbc, no pain on presentation. Will follow, thank you HPI Consult Data Date of Consult: 11/26/24 HPI Narrative Reason for Consultation: infected finger HPI Narrative: ARIAS OROZCO, is a 69 F who presented 11/25 with about a week of progressive R middle finger swelling. She thinks may have stuck finger on cactus. No fever, minimal pain, no redness streaking up arm. She is R handed. No h/o gout. She used a pin and drained white fluid from her finger. She played tennis 11/[address] Spain 11/25, sent to ED, I&D done, now on vanc/cefepime, feeling ok. Full ROS performed and neg except as noted above. [facility] Medical History ETOH abuse Hypertension Cellulitis of right middle finger Home Medications ?Medication ?Instructions ?Recorded ?Last Taken ?Type doxycycline monohydrate 100 mg 100 mg PO BID #20 caps 11/24/24 11/25/24 Rx capsule hydrochlorothiazide 25 mg tablet 25 mg PO QDAY 11/24/24 11/25/24 History Allergy/AdvReac Type Severity Reaction Status Date / Time Penicillins Allergy Severe Rash Verified 11/25/24 10:06 Family History Mother CVA (cerebral vascular accident) Dementia Father Hypertension Aunt Alcohol abuse Uncle Alcohol abuse Surgical History Previous section History of thumb surgery Social History household members: spouse Smoking Status: Never smoker alcohol intake: current alcohol intake frequency: 3 or more drinks per day Alcohol type: hard liquor details: Prior 1-2 drinks/night->since 09/2024 increased to 4-6/night. substance use type: does not use what type of physical activity do you participate in: walking and bicycling do you feel safe at home: Yes Physical Exam Const alert, oriented x3 and no apparent distress General Appearance: cooperative HEENT normocephalic and head/scalp atraumatic Eyes PERRL and EOMs intact bilaterally Neck supple and No nodes Resp normal air movement and clear to auscultation bilaterally Cardio regular rate and regular rhythm GI soft to palpation, non-tender and non-distended Extremity General Extremity: Negative for edema Skin Skin Narrative: R finger wrapped, reviewed photo Neuro CN's II-XII intact bilaterally Lab / Micro Data Attestation: I reviewed the patient's lab results. 11/26/24 05:26 11/26/24 05:26 Labs: Laboratory Results - last 24 hr 11/25/24 12:45: Phosphorus 3.1, Magnesium 1.8 11/25/24 : Fluid Crystals See PATH REV, Fluid Crystal Source OTHER, Fl Crystal Path Review Will follow 11/26/24 05:26: WBC 4.6, RBC 3.81 L, Hgb 11.8 L, Hct 35.0 L, MCV 91.9, MCH 31.0, MCHC 33.7, RDW Std Deviation 41.6, RDW Coeff of Garett 12.6, Plt Count 238, MPV 9.9, Immature Gran % (Auto) 0.200, Neut % (Auto) 51.2, Lymph % (Auto) 30.4, [place] % (Auto) 15.4 H, Eos % (Auto) 2.4, Baso % (Auto) 0.4, Absolute Neuts (auto) 2.4, Absolute Lymphs (auto) 1.40, Nucleated RBC % 0, Sodium 137, Potassium 3.2 L, Chloride 104, Carbon Dioxide 28.0, Anion Gap 5, BUN 9, Creatinine 0.47 L, Estim Creat Clear Calc 63.67, Est GFR (MDRD) Af Amer 171, Est GFR (MDRD) Non-Af 142, BUN/Creatinine Ratio 19.3, Glucose 103, Calcium 9.2, Total Bilirubin 0.70, AST 64 H, ALT 83 H, Alkaline Phosphatase 85, Total Protein 6.6, Albumin 3.0 L, Globulin 3.6, Albumin/Globulin Ratio 0.8 L Imaging Radiology Impression Upper Extremity MRI 11/26/24 09:00 IMPRESSION: Skin ulceration along the ulnar/medial aspect of the third finger at the level of the DIP joint with severe surrounding cellulitis. Mild reactive marrow edema in the middle and distal phalanges of the third finger. Electronically Signed: Silas Mcclain MD at 12:27 EST ,
[2024-11-26 14:06] LABS: Pathologist Review Reviewed
--- NOTE | 2024-11-26 16:01 | CASEMGMT ---
ONEL RAY Assessment Face to Face with patient for initial transition planning/care coordination assessment. ONEL RAY introduced self and role at [facility], pt voices understanding. Pt is A&Ox4 and is resting comfortably in bed and is calm. Care providers, pharmacy, and demographics verified. Admitting dx: Debridement R Middle Finger PCP: Lilibeth Rodgers Specialists: Denies previous. Dr. Burgess (ID) and Dr. Spain (Plastics) are currently consulted. Preferred Pharmacy: [facility] Insurance: [employer] [facility] Prescription Benefit: Yes LNOK: David Suarez (H) Living Arrangements: Pt lives with her in a single story home with a basement with one step to enter ADLs/IADLs: Ind Transportation: Self, DME: [employer]. Access to a FWW and Cane but does not use HHC/SNF: Denies history ETOH: Pt states that she was drinking around 2 liquor drinks/ night. Denies tobacco or illicit drug use. Wound: See Wound RN consult. Pt states that she would be interested in attending the [facility] if recommended. CM to follow. Pt?s goal: Return home Plan: TBD. Anticipate eventual DC Home, follow for IV ATB needs and wound needs. At this time, it is uncertain if the pt will go home with IV or PO ATBs. CM to follow ID consult. Pt may also be a good candidate to f/u at the [facility]. CM to follow. At this time, the pt states that she feels safe returning home with her once she is medically ready. Report given to SIN SYKES CM. Shruthi Buckley RN, CM
[2024-11-26 19:47] VITALS: BP 140/78; PULSE 70; RESP 18; TEMP 36.4; O2SAT 100
[2024-11-27 02:06] LABS: Vancomycin, Trough Level 8.4 ug/mL (5.0-15.0)
--- NOTE | 2024-11-27 02:16 | PCM.RX.CS ---
Consult Antibiotic Management Pharmacy has been consulted to manage selected antibiotic: Vancomycin Type of Intervention Type of Consult: Follow-up Labs Labs: Sodium 137 mmol/L (136-145) 11/26/24 05:26 Potassium 3.2 mmol/L (3.5-5.1) L 11/26/24 05:26 Chloride 104 mmol/L (98-107) 11/26/24 05:26 Carbon Dioxide 28.0 mmol/L (21.0-32.0) 11/26/24 05:26 Anion Gap 5 (5-15) 11/26/24 05:26 BUN 9 mg/dL (7-18) 11/26/24 05:26 Creatinine 0.47 mg/dL (0.55-1.02) L 11/26/24 05:26 Est GFR (MDRD) Af Amer 171 mL/min (>60) 11/26/24 05:26 Est GFR (MDRD) Non-Af 142 mL/min (>60) 11/26/24 05:26 BUN/Creatinine Ratio 19.3 RATIO (10-20) 11/26/24 05:26 Glucose 103 mg/dL (74-106) 11/26/24 05:26 Vancomycin Trough 8.4 ug/mL (5.0-15.0) 11/27/24 01:38 Goal Trough Goal Trough: 15-20 mcg/mL Pharmacy Plan for Drug Dosing Pharmacy Plan for Drug Dosing: Pharmacy Service will continue to monitor and adjust dosing as required. TROUGH 8.4 @ 11.5 HOURS. INCREASE TO 1000MG Q12H AND FOLLOW UP TROUGH PRIOR TO 4TH DOSE Follow-Up Labs Follow-Up Labs: Trough: Vancomycin Date/Time Labs Ordered Labs to be done on [date and time ordered]: 11/29 @ 3469
[2024-11-27 02:38] VITALS: BP 138/85; PULSE 63; RESP 18; TEMP 36.5; O2SAT 97
[2024-11-27] MEDS: Vancomycin IV 1,000 MG/200 ML BAG 200 MG IV (02:47)
[2024-11-27 06:00] VITALS: BMI 24.9
[2024-11-27 06:44] LABS: Absolute Lymphocyte Count 1.43 X10^3/uL (0.83-4.51); Absolute Neutrophil Count 2.3 X10^3/uL (2.0-7.7); Basophil# 0.06 X10^3/uL; Basophil% 1.3 % (0-1); Eosinophil# 0.11 X10^3/uL; Eosinophils% 2.4 % (0-5); Hematocrit 37.1 % (37-47); Hemoglobin 12.3 g/dL (12.0-15.0); Lymphocyte # 1.43 X10^3/ul (0.83-4.51); Lymphocyte % 31.4 % (19-41); Mean Corp Hgb Conc 33.2 g/dL (32-36); Mean Corpuscular Hgb 30.8 pg (27.0-32.0); Mean Platelet Vol. 9.8 fl (6.2-12.0); Monocyte# 0.68 X10^3/uL; Monocyte% 14.9 % (0-10); NRBC Flagged by Analyzer 0 % (0-5); Neutrophil # 2.26 X10^3/uL (2.7-7.7); Neutrophil % 49.8 % (47-70); Platelet Count 230 K/mm3 (150-450); RBC Distribution Width CV 12.4 % (11.6-14.6); RBC Distribution Width SD 42.5 fl (35.1-43.9); Red Blood Count 3.99 M/mm3 (4.2-5.4); White Blood Count 4.6 K/mm3 (4.4-11.0)
[2024-11-27 06:59] VITALS: O2SAT 94
[2024-11-27 07:23] LABS: Anion Gap 7 (5-15); BUN 9 mg/dL (7-18); BUN/Creat Ratio 19.2 RATIO (10-20); Calcium,Total 9.4 mg/dL (8.5-10.1); Chloride 102 mmol/L (98-107); Creatinine, Serum 0.47 mg/dL (0.55-1.02); EST Glomerular Filtration Rate 141 mL/min (>60); Est Glom Filt Rate - Afr Amer 170 mL/min (>60); Estimated Creatinine Clearance 63.88 ml/min; Glucose 102 mg/dL (74-106); Potassium 3.1 mmol/L (3.5-5.1); Sodium Level 136 mmol/L (136-145)
[2024-11-27] MEDS: hydroCHLOROthiazide 25 MG Tablet PO (07:56)
[2024-11-27] MEDS: Enoxaparin 40 MG/0.4 ML Syringe SC (07:57)
[2024-11-27] MEDS: Folic Acid 1 MG Tablet PO (07:57)
[2024-11-27] MEDS: Thiamine Hydrochloride 100 MG Tablet PO (07:57)
[2024-11-27] MEDS: Multivitamins,Ther W-Minerals Tablet 1 TABLET PO (07:57)
[2024-11-27] MEDS: Potassium Chloride Oral Tablet 20 MEQ 40 MEQ PO (07:58)
[2024-11-27 08:30] VITALS: BP 136/84; PULSE 65; RESP 18; TEMP 36.4; O2SAT 98
--- NOTE | 2024-11-27 09:17 | PN.SURG_ITS ---
Subjective Subjective Doing well. Pain controlled. MRI demonstrated reactive changes but no definitive ostemyelitis Objective Data Objective Data Vital Signs: Vital Signs Temp Pulse Resp BP Pulse Ox O2 Del Method 97.7 F L 63 18 138/85 H 97 Room Air 11/27/24 02:38 11/27/24 02:38 11/27/24 02:38 11/27/24 02:38 11/27/24 02:38 11/27/24 07:49 Oxygen Delivery Method Room Air Weight: 145 lb 15.136 oz Body Mass Index (BMI) 24.9 Intake & Output: Intake and Output for Last 24 Hours 11/25/24 11/26/24 11/27/24 23:59 23:59 23:59 Intake Total 730 / 730 2330 / 2330 1200 / 1200 Balance 730 / 730 2330 / 2330 1200 / 1200 Lab / Micro Data 11/27/24 05:32 11/27/24 05:32 Labs: Laboratory Results - last 24 hr 11/25/24 : Fl Crystal Path Review Reviewed 11/27/24 01:38: Vancomycin Trough 8.4 11/27/24 05:32: WBC 4.6, RBC 3.99 L, Hgb 12.3, Hct 37.1, MCV 93.0, MCH 30.8, MCHC 33.2, RDW Std Deviation 42.5, RDW Coeff of Garett 12.4, Plt Count 230, MPV 9.8, Immature Gran % (Auto) 0.200, Neut % (Auto) 49.8, Lymph % (Auto) 31.4, [place] % (Auto) 14.9 H, Eos % (Auto) 2.4, Baso % (Auto) 1.3 H, Absolute Neuts (auto) 2.3, Absolute Lymphs (auto) 1.43, Nucleated RBC % 0, Sodium 136, Potassium 3.1 L , Chloride 102, Carbon Dioxide 26.0, Anion Gap 7, BUN 9, Creatinine 0.47 L, Estim Creat Clear Calc 63.88, Est GFR (MDRD) Af Amer 170, Est GFR (MDRD) Non-Af 141, BUN/Creatinine Ratio 19.2, Glucose 102, Calcium 9.4 Radiography Diagnostic Testing: Radiology Impression Upper Extremity MRI 11/26/24 09:00 IMPRESSION: Skin ulceration along the ulnar/medial aspect of the third finger at the level of the DIP joint with severe surrounding cellulitis. Mild reactive marrow edema in the middle and distal phalanges of the third finger. Electronically Signed: Silas Mcclain MD at 12:27 EST , Physical Exam Narrative RUE: Incisions over DIP joint are open (packing removed). No purulence. No pain on the flexor surface or any other signs of volar infection. Motor: Able to bend and extend all MP, PIP, and DIP joints. Sensory: Intact to light touch on the radial and ulnar borders. Vascular: Finger tips are warm and well perfused with <2 second capillary refill. Assessment & Plan Assessment/Plan (1) Infection of distal interphalangeal (DIP) joint of finger: PLAN: Agree with medicine admit for CIWA/alcohol protocol and for broad-spectrum antibiotics and ID consultation. F/u pathology and f/u cultures. PSU to continue to follow Continue elevation and continue three times per day dial soap soaks with packing (discussed with patient and nursing) Charges/Coding Procedures Integumentary [id number]: [id number] Global Visit
[2024-11-27] MEDS: Cefepime HCl 2 GM in 0.9% Normal Saline (100mL MB+) 100 ML IV (09:21)
--- NOTE | 2024-11-27 10:27 | PCM.PN.ID ---
Physical Exam Narrative Feeling better, no fever, no n/v/d. Finger improving. Const alert and no apparent distress General Appearance: cooperative Resp normal air movement and clear to auscultation bilaterally Cardio regular rate and regular rhythm GI soft to palpation, non-tender and non-distended Skin Skin Narrative: R finger wrapped ID ID: Route of nutrition/ use of supplements: [] Nutritional Intake: [] IV Site: [] Watt Catheter: [] Assessment & Plan Assessment/Plan (1) Infection of distal interphalangeal (DIP) joint of finger: PLAN: Taken to OR 11/25/[address] Spain for I&D. Surg cx and pcr neg so far. Bcx ngtd. On empiric vanc/cefepime. No fever, normal wbc, no pain on presentation. Crystals seen on path review. Will stop abx today. Will order uric acid. Will follow as needed, d/w Dr. Spain
[2024-11-27 11:34] LABS: Uric Acid 6.5 mg/dL (2.6-6.0)
[2024-11-27 14:00] VITALS: BP 122/76; PULSE 66; RESP 18; TEMP 36.7; O2SAT 98
--- NOTE | 2024-11-27 14:53 | PCM.DC.SUM ---
Providers Date of Admission: 11/25/24 Date of Discharge: 11/27/24 Primary Care Physician: Dr. Lilibeth Rodgers, Consultations 11/25/24 20:03 Consult: Infectious Disease Routine Consulting Provider: Markie Burgess Reason for Consult: Cellulitis, DIP infection EMERGENT Consult: No Notified: Yes Date Notified: 11/25/24 Time Notified: 13:53 Method of Notification: Text Consult: Onc/Wound/cardiology consultants Routine Comment: Consult: Plastic Surgery Routine Consulting Provider: Markie Spain Reason for Consult: Finger cellulitis, DIP infection EMERGENT Consult: No Notified: Yes Date Notified: 11/25/24 Time Notified: 13:52 Method of Notification: ED Physician Initiated Reason For Visit: DEBRIDEMENT R MIDDLE FINGER Diagnosis Discharge Diagnosis (1) Gout attack: Status: Acute Code(s): M10.9 - Gout, unspecified Plan # Right middle finger gout flare #Hypertension #Hypokalemia Medications at Discharge Home Medications doxycycline monohydrate 100 mg capsule 100 mg PO BID #20 caps 11/24/24 naproxen 500 mg tablet See Rx Instructions .Route .COMPLEX #9 tabs 11/27/24 Hospital Course Procedures - (R middle finger 1st DIP debridement) Summary of Care Provided Minutes Spent on Discharge: 31 Hospital Course: 69-year-old female history of hypertension and hypokalemia presented to [facility] ED 11/25/2024 due to a week of increased swelling at the distal interphalangeal joint on her right middle finger. She will Wunning a cactus and cactus thorn pricked her finger. She followed up with plastics in the office and there was concern for infection so she was brought to the hospital and placed on broad-spectrum antibiotics and patient underwent I&D of the finger and ID consultation. MRI showed skin ulceration with surrounding cellulitis and mild reactive marrow edema, cultures no growth of bacteria but did show gout crystals. ID discontinued antibiotics and patient in stable condition to follow-up with plastics in the office and it was asked that she continue the doxycycline until their appointment given it is presently open continue her soaks. Also discussed her hydrochlorothiazide in relation to her continued hypokalemia and gout flare and that this will be held, she was agreeable to this and will follow-up with her primary care physician. Also discussed discharging her on naproxen for gout flare and she was agreeable. No new or acute complaints on day of discharge. Discharge instructions as follows: -Please follow-up with plastic surgery on Sunday -You can continue your home doxycycline until you follow-up with them in the clinic for further decision -Your hydrochlorothiazide will be held due to your low potassium and gout flare -Would recommend lab work (BMP) to check your potassium in 2 to 3 days through your primary care physician's office. Please call their office upon discharge to obtain order for lab work. -You will be discharged on naproxen for your gout flare. You will take 500 mg orally twice daily for 3 days then once daily for 3 days, if symptoms persist contact your primary care physician -Please continue with your soaks and wound care per plastic surgery/wound care recommendations -Please call your primary care provider's office upon discharge to schedule a hospital follow up within 1 week. -For any concerning signs or symptoms please call 911 or proceed to the nearest emergency department Physical Exam Narrative General: Alert, oriented, no apparent distress HEENT: Atraumatic, normocephalic Eyes: extraocular movements grossly intact Neck: Supple Respiratory: normal respiratory effort Cardiovascular: no edema appreciated GI: nondistended Extremities: Moving all extremities, finger presently undergoing soaks and does have 2 open areas without any kind of purulent drainage, still has some swelling and erythema Neuro: No overt focal neurological deficits Psych: Cooperative Weight / BMI Weight Weight: 66.2 kg Body Mass Index (BMI) 24.9 ABG / Lab / Microbiology Data 11/27/24 05:32 11/27/24 05:32 Laboratory: Laboratory Results - last 24 hr 11/27/24 01:38: Vancomycin Trough 8.4 11/27/24 05:32: WBC 4.6, RBC 3.99 L, Hgb 12.3, Hct 37.1, MCV 93.0, MCH 30.8, MCHC 33.2, RDW Std Deviation 42.5, RDW Coeff of Garett 12.4, Plt Count 230, MPV 9.8, Immature Gran % (Auto) 0.200, Neut % (Auto) 49.8, Lymph % (Auto) 31.4, [place]ach % (Auto) 14.9 H, Eos % (Auto) 2.4, Baso % (Auto) 1.3 H, Absolute Neuts (auto) 2.3, Absolute Lymphs (auto) 1.43, Nucleated RBC % 0, Sodium 136, Potassium 3.1 L, Chloride 102, Carbon Dioxide 26.0, Anion Gap 7, BUN 9, Creatinine 0.47 L, Estim Creat Clear Calc 63.88, Est GFR (MDRD) Af Amer 170, Est GFR (MDRD) Non-Af 141, BUN/Creatinine Ratio 19.2, Glucose 102, Uric Acid 6.5 H, Calcium 9.4 Microbiology: Microbiology 11/25/24 12:45 Blood Culture (Wb) - Anticubital Left Blood Culture - Preliminary No growth in 48 hours. 11/25/24 12:45 Blood Culture (Wb) - Anticubital Left Blood Culture - Preliminary No growth in 48 hours. 11/26/24 Unknown Tissue - Finger Gram Stain - Final 11/26/24 Unknown Tissue - Finger Wound Culture - Preliminary No growth-Final to follow D/C Instructions Discharge Diet: - (See gout diet attached in instructions) DC O2, CPAP, BIPAP Needs Home O2 Discharge instructions: No Meaningful Use Info Meaningful Use Meaningful Use Diagnoses (Choose all that apply): None applicable Ischemic Stroke Statin Dosing Therapy Reference: STATIN DOSE THERAPY REFERENCE: * Patients > 75 years receive moderate or high dose statin therapy. * Patients 75 years or YOUNGER should receive HIGH intensity statin dose unless contraindicated. You will be required to document reason for non-treatment if statin daily dose does not meet guidelines. HIGH DOSE STATIN THERAPY DAILY Atorvastatin > than or = to 40 mg Rosuvastatin > than or = to 20 mg Amlodipine + Atorvastatin > than or = to 2.5/40 mg Ezetimibe + Simvastatin 10/80 mg Simvastatin 80mg Discharge Plan Admission Admit Date/Time: 11/25/24 13:51 Primary Reason for Your Visit: Finger redness and swelling Attending Provider: Markie Spain Primary Care Provider: Lilibeth Rodgers Consulting Providers: Sarah Grayson; Markie Burgess Instructions Patient Instructions: Eating to Prevent Gout, ED Gout, ED Gout Diet Additional Instructions / Restrictions: DISCHARGE INSTRUCTIONS PLEASE READ *Please take this with you to your next doctors appointment* -Please follow-up with plastic surgery on Sunday -You can continue your home doxycycline until you follow-up with them in the clinic for further decision -Your hydrochlorothiazide will be held due to your low potassium and gout flare -Would recommend lab work (BMP) to check your potassium in 2 to 3 days through your primary care physician's office. Please call their office upon discharge to obtain order for lab work. -You will be discharged on naproxen for your gout flare. You will take 500 mg orally twice daily for 3 days then once daily for 3 days, if symptoms persist contact your primary care physician -Please continue with your soaks and wound care per plastic surgery/wound care recommendations -Please call your primary care provider's office upon discharge to schedule a hospital follow up within 1 week. -For any concerning signs or symptoms please call 911 or proceed to the nearest emergency department Discharge Orders/Prescriptions Prescriptions: New naproxen 500 mg tablet See Rx Instructions .ROUTE .COMPLEX Qty: 9 0RF Rx Instructions: 500 mg orally twice daily for 3 days then once daily for 3 days, if symptoms persist contact your primary care physician Continued doxycycline monohydrate 100 mg capsule 100 mg PO BID Qty: 20 0RF Discontinued hydrochlorothiazide 25 mg tablet 25 mg PO QDAY Referrals / Follow Up: Lilibeth Rodgers DO [Primary Care Provider] - None (Please follow-up with your primary care physician on discharge) Markie Spain MD [Med Staff - Active Staff] - 12/01/24 Disposition Disposition (needs filled in before D/C Order can be placed): Home, Self Care Charges/Coding Visit Charges Inpatient E&M: 12935 Disch Hosp >30min
== END 2024-11-27 17:45 | disposition home or self-care (01) | DRG 506 ==
LOC: ED 14:04 → MS3 20:35 → SDC 11-26 09:49 → ACINP 11-26 09:50 → SDC 11-26 09:50 → MS3 11-26 09:50
PROVIDERS: Internal Medicine; Internal Medicine Infectious Disease; Admitting Provider Family Medicine; Emergency Provider Surgery; PCP Family Medicine; Visit Provider Surgery Plastic and Reconstructive Surgery
DX: M10.041 Idiopathic gout, right hand (principal); E87.1 Hypo-osmolality and hyponatremia; M00.9 Pyogenic arthritis, unspecified; I10 Essential (primary) hypertension; F10.10 Alcohol abuse, uncomplicated; E86.0 Dehydration; E87.6 Hypokalemia; W60.XXXA Contact with nonvenomous plant thorns and spines and sharp leaves, initial encounter; L03.011 Cellulitis of right finger; Y90.9 Presence of alcohol in blood, level not specified; Z79.899 Other long term (current) drug therapy
CPT/HCPCS: 36415; 73140; 73220; 80048; 80053; 80202; 83605; 83735; 84100; 84550; 85025; 85652; 86140; 87040; 87070; 87075; 87205; 88305; 89060; 94668; 99285; A9575; A4216

== ENCOUNTER → 2025-03-06 | Outpatient (CLI) | payer MEDICARE, SELFPAY ==
[2025-03-06 12:36] LABS: Absolute Lymphocyte Count 1.31 X10^3/uL (0.83-4.51); Absolute Neutrophil Count 2.7 X10^3/uL (2.0-7.7); Basophil# 0.04 X10^3/uL; Basophil% 0.9 % (0-1); Eosinophil# 0.11 X10^3/uL; Eosinophils% 2.4 % (0-5); Hematocrit 42.9 % (37-47); Hemoglobin 14.5 g/dL (12.0-15.0); Lymphocyte # 1.31 X10^3/ul (0.83-4.51); Lymphocyte % 28.4 % (19-41); Mean Corp Hgb Conc 33.8 g/dL (32-36); Mean Corpuscular Hgb 31.6 pg (27.0-32.0); Mean Corpuscular Volume 93.5 fL (81-99); Mean Platelet Vol. 9.9 fl (6.2-12.0); Monocyte# 0.47 X10^3/uL; Monocyte% 10.2 % (0-10); NRBC Flagged by Analyzer 0 % (0-5); Neutrophil # 2.67 X10^3/uL (2.7-7.7); Neutrophil % 57.7 % (47-70); Platelet Count 271 K/mm3 (150-450); RBC Distribution Width CV 12.3 % (11.6-14.6); RBC Distribution Width SD 42.4 fl (35.1-43.9); Red Blood Count 4.59 M/mm3 (4.2-5.4); White Blood Count 4.6 K/mm3 (4.4-11.0)
[2025-03-06 13:49] LABS: ALB/GLOB Ratio 1.4 RATIO (0.9-2.4); AST(SGOT) 77 U/L (<=31); Alanine Aminotransfer ALT/SGPT 78 U/L (<=34); Albumin, Serum 4.5 g/dL (3.4-4.8); Alkaline Phosphatase 84 U/L (35-104); Anion Gap 14 (5-15); BUN 14 mg/dL (4-19); BUN/Creat Ratio 21.8 RATIO (10-20); Calcium,Total 9.8 mg/dL (7.6-11.0); Carbon Dioxide 23.6 mmol/L (21.0-32.0); Chloride 99 mmol/L (98-108); Cholesterol 305 mg/dL (<=200); Creatinine, Serum 0.64 mg/dL (0.70-1.20); EST Glomerular Filtration Rate 96 (>60); Globulin 3.3 g/dL (2.2-4.2); Glucose 100 mg/dL (70-99); High Density Lipoprotein 108 mg/dL; Low Density Lipoprotein Calc. 183 mg/dL; Potassium 4.3 mmol/L (3.3-5.1); Protein, Total 7.8 g/dL (5.9-8.4); Sodium Level 137 mmol/L (133-145); Total Bilirubin 0.74 mg/dL (0.00-1.30); Triglycerides 69 mg/dL; Very Low Density Lipoprotein 14 mg/dL (5-40); cholesterol:hdl ratio screen 2.82
[2025-03-06 13:52] LABS: Ferritin 302 ng/mL (22-378); Magnesium 1.8 mg/dL (1.5-2.2); Uric Acid 6.8 mg/dL (2.6-6.0); Vitamin B12 473 pg/mL (180-914)
[2025-03-06 14:08] LABS: Iron 194 ug/dL (50-170)
== END | disposition home or self-care (01) ==
PROVIDERS: PCP Family Medicine; Visit Provider Family Medicine
DX: I10 Essential (primary) hypertension (principal); E55.9 Vitamin D deficiency, unspecified; E53.8 Deficiency of other specified B group vitamins; E79.0 Hyperuricemia without signs of inflammatory arthritis and tophaceous disease; R74.8 Abnormal levels of other serum enzymes
CPT/HCPCS: 36415; 80053; 80061; 82306; 82607; 82728; 83540; 83735; 84550; 85025

== ENCOUNTER → 2025-05-21 | Outpatient (CLI) | payer MEDICARE, SELFPAY ==
--- NOTE | 2025-05-21 09:40 | RAD_ITS ---
PROCEDURE: THORACIC SPINE 3 VIEWS 05/21/2025 REASON FOR EXAM: DORSALGIA TECHNIQUE: THORACIC SPINE 3 VIEWS COMPARISON: No FINDINGS: Mild scoliosis, dextroconvex at T9. Multilevel disc space narrowing and osteophyte formation. Lower cervical spine degeneration. No acute bone, soft tissue, or lung pathology. RAD/Thoracic Spine 3 Views IMPRESSION: Thoracic spine scoliosis and degeneration. [facility]
--- NOTE | 2025-05-21 09:40 | RAD_ITS ---
EXAM: XR Lumbosacral Spine, 4 or 5 Views CLINICAL INDICATION: DORSALGIA TECHNIQUE: Frontal, lateral and bilateral oblique views of the lumbar spine. COMPARISON: No relevant prior studies available. FINDINGS: VERTEBRAE: Moderate endplate degenerative changes of the lumbar spine from L1- S1. Anterior spondylolisthesis of L5 over S1 by 10 mm. Further evaluation with MRI is recommended. No acute fracture. SACRUM/COCCYX: See below. DISC SPACES: Multilevel disc disease of L1-2 S1, most prominent at L3-4. SOFT TISSUES: Unremarkable. RAD/L/S Spine Min 4 Views IMPRESSION: Anterior spondylolisthesis of L5 over S1 by 10 mm. Further evaluation with MRI is recommended. Reading Location: [facility]
== END | disposition home or self-care (01) ==
LOC: MTRAD 09:38
PROVIDERS: PCP Family Medicine; Referring Provider Family Medicine; Visit Provider Family Medicine
DX: M54.9 Dorsalgia, unspecified (principal)
CPT/HCPCS: 72072; 72110

== ENCOUNTER → 2025-05-26 | Outpatient (CLI) | payer MEDICARE, SELFPAY ==
--- NOTE | 2025-05-26 13:33 | RAD_ITS ---
PROCEDURE: TOE(S) MIN 2 VIEWS 05/26/2025 REASON FOR EXAM: PAIN TECHNIQUE: Four view left 1st toe COMPARISON: None. RAD/Toe(s) Min 2 Views IMPRESSION: Mild degenerative changes are seen of the left 1st interphalangeal joint. In t he dorsal medial aspect of the base of the left 1st toe distal phalanx, a minimally displaced FRACTURE site is noted. Minimal degenerative changes are seen of the left 1st metatarsophalangeal joint . Reading Location: [address]
== END | disposition home or self-care (01) ==
LOC: MTRAD 13:33
PROVIDERS: PCP Family Medicine; Referring Provider Physician Assistant; Visit Provider Physician Assistant
DX: M79.675 Pain in left toe(s) (principal)
CPT/HCPCS: 73660